=== PATIENT | female | born 1985 | race Caucasian/White ===

== ENCOUNTER → 2017-09-10 | Outpatient (CLI) | payer OTHER ==
[2017-09-10 13:28] LABS: MEAN CORPUSCULAR HEMOGLOBIN 32.3 pg (27.0-33.0); MEAN CORPUSCULAR HGB CONC 32.6 g/dl (32.0-36.5); MEAN CORPUSCULAR VOLUME 99.1 fl (80.0-96.0); PLATELET COUNT, AUTOMATED 298 10^3/uL (150-450); RED CELL DISTRIBUTION WIDTH 13.5 % (11.5-14.5); WHITE BLOOD COUNT 6.7 10^3/uL (4.0-10.0)
[2017-09-10 13:38] LABS: ALBUMIN 3.9 GM/DL (3.2-5.2); ALBUMIN/GLOBULIN RATIO 1.26 (1.00-1.93); ALKALINE PHOSPHATASE 67 U/L (45-117); ALT/SGPT 17 U/L (12-78); ANION GAP 8 MEQ/L (8-16); AST/SGOT 9 U/L (7-37); BILIRUBIN,TOTAL 0.2 MG/DL (0.2-1.0); BLOOD UREA NITROGEN 16 MG/DL (7-18); CALCIUM LEVEL 9.2 MG/DL (8.5-10.1); CARBON DIOXIDE LEVEL 27 MEQ/L (21-32); CHLORIDE LEVEL 108 MEQ/L (98-107); CHOLESTEROL LEVEL 176 MG/DL (<200); CREATININE FOR GFR 0.85 MG/DL (0.55-1.02); GLOMERULAR FILTRATION RATE > 60.0 (>60); GLUCOSE, FASTING 75 MG/DL (70-105); POTASSIUM SERUM 4.3 MEQ/L (3.5-5.1); SODIUM LEVEL 143 MEQ/L (136-145); TRIGLYCERIDES LEVEL 124 MG/DL (<150)
== END ==
LOC: M SMT 09:31
PROVIDERS: ATTEND Physician Assistant Medical
DX: Z13.0 Encounter for screening for diseases of the blood and blood-forming organs and certain disorders involving the immune mechanism (principal); Z13.29 Encounter for screening for other suspected endocrine disorder; E55.9 Vitamin D deficiency, unspecified; Z13.220 Encounter for screening for lipoid disorders

== ENCOUNTER → 2017-11-19 | Outpatient (REF) | payer OTHER | LOC: M LAB REF 13:11 | DX: R30.0 Dysuria (principal) ==

== ENCOUNTER → 2018-01-25 | Outpatient (CLI) | payer OTHER ==
[2018-01-25 13:17] LABS: BASO % 0.3 % (0.0-1.0); EOS # 0.1 10^3/uL (0.0-0.50); EOS % 0.6 % (0.0-3.0); HEMATOCRIT 41.5 % (36.0-47.0); HEMOGLOBIN 13.6 g/dl (12.0-15.5); IMMATURE GRANULOCYTE % 0.3 % (0-3.0); LYMPH % 18.4 % (24.0-44.0); MEAN CORPUSCULAR HEMOGLOBIN 32.3 pg (27.0-33.0); MEAN CORPUSCULAR HGB CONC 32.8 g/dl (32.0-36.5); MEAN CORPUSCULAR VOLUME 98.6 fl (80.0-96.0); MONO # 0.6 10^3/uL (0.0-0.8); MONO % 5.4 % (0.0-5.0); NEUTROPHILS # 8.1 10^3/uL (1.8-7.7); PLATELET COUNT, AUTOMATED 311 10^3/uL (150-450); RED BLOOD COUNT 4.21 10^6/uL (4.00-5.40); RED CELL DISTRIBUTION WIDTH 14.1 % (11.5-14.5); WHITE BLOOD COUNT 10.8 10^3/uL (4.0-10.0)
[2018-01-25 14:08] LABS: RUBELLA IgG QUALITATIVE IMMUNE (IMMUNE)
[2018-01-25 14:10] LABS: HBsAg Prenatal NEGATIVE (NEGATIVE)
[2018-01-25 14:36] LABS: HEPATITIS C VIRUS ABY INDEX < 0.0 INDEX (<0.8)
[2018-01-25 14:37] LABS: HIV 1&2 SCREEN CENTAUR NEGATIVE (NEGATIVE)
[2018-01-25 15:32] LABS: CHLAMYDIA DNA AMPLIFICATION NEGATIVE (NEGATIVE); GC DNA AMPLIFICATION NEGATIVE (NEGATIVE)
== END ==
LOC: M SMT 08:53
DX: Z34.81 Encounter for supervision of other normal pregnancy, first trimester (principal); Z3A.08 8 weeks gestation of pregnancy

== ENCOUNTER → 2018-03-09 | Outpatient (CLI) | payer OTHER | LOC: M RAD 09:48 | DX: Z34.82 Encounter for supervision of other normal pregnancy, second trimester (principal); Z36.89 Encounter for other specified antenatal screening; Z3A.20 20 weeks gestation of pregnancy | CPT/HCPCS: 76811 ==

== ENCOUNTER → 2018-03-19 | Outpatient (REF) | payer OTHER | LOC: M LAB REF 13:59 | DX: Z34.82 Encounter for supervision of other normal pregnancy, second trimester (principal) ==

== ENCOUNTER → 2018-05-07 | Outpatient (CLI) | payer OTHER | LOC: M RAD 08:40 | DX: O32.1XX0 Maternal care for breech presentation, not applicable or unspecified (principal); Z36.89 Encounter for other specified antenatal screening; Z3A.28 28 weeks gestation of pregnancy | CPT/HCPCS: 76816 ==

== ENCOUNTER → 2018-05-13 | Outpatient (CLI) | payer OTHER ==
[2018-05-13 13:44] LABS: HEMATOCRIT 38.7 % (36.0-47.0); HEMOGLOBIN 12.6 g/dl (12.0-15.5); MEAN CORPUSCULAR HEMOGLOBIN 32.8 pg (27.0-33.0); MEAN CORPUSCULAR HGB CONC 32.6 g/dl (32.0-36.5); MEAN CORPUSCULAR VOLUME 100.8 fl (80.0-96.0); PLATELET COUNT, AUTOMATED 301 10^3/uL (150-450); RED BLOOD COUNT 3.84 10^6/uL (4.00-5.40); WHITE BLOOD COUNT 9.9 10^3/uL (4.0-10.0)
[2018-05-13 14:12] LABS: GLUCOSE CHALLENGE TEST 1 HOUR 85 MG/DL (LESS THAN 140)
== END ==
LOC: M SMT 10:30
DX: Z36.89 Encounter for other specified antenatal screening (principal); Z3A.00 Weeks of gestation of pregnancy not specified
CPT/HCPCS: 82950

== ENCOUNTER → 2018-07-08 | Outpatient (REF) | payer OTHER | LOC: M LAB REF 13:47 | DX: Z34.83 Encounter for supervision of other normal pregnancy, third trimester (principal) ==

== ENCOUNTER 2018-07-28 06:08 | Inpatient (IN) | payer OTHER ==
[2018-07-28] MEDS: LACTATED RINGER'S 1000 ML IV ×2 (07:00→07:48)
[2018-07-28 07:07] LABS: HEMATOCRIT 42.4 % (36.0-47.0); HEMOGLOBIN 14.4 g/dl (12.0-15.5); MEAN CORPUSCULAR HEMOGLOBIN 32.9 pg (27.0-33.0); MEAN CORPUSCULAR VOLUME 96.8 fl (80.0-96.0); PLATELET COUNT, AUTOMATED 314 10^3/uL (150-450); RED BLOOD COUNT 4.38 10^6/uL (4.00-5.40); RED CELL DISTRIBUTION WIDTH 14.5 % (11.5-14.5); WHITE BLOOD COUNT 8.8 10^3/uL (4.0-10.0)
[2018-07-28] MEDS: LR 1,000 ML IV (07:51)
[2018-07-28] MEDS: BICITRA 30ML SOLN UDC PO (08:14)
[2018-07-28] MEDS ORDERED: OXYTOCIN INJ 10 UNITS/ML VIAL (J2590) As Ordered (08:52)
[2018-07-28] MEDS ORDERED: MORPHINE PRES-FREE INJ 10 MG/10 ML VIAL (J2274) As Ordered (08:52)
[2018-07-28] MEDS ORDERED: PHENYLephrine HCL 500 MCG/5 ML (100MCG/ML) SYRINGE (J2370) As Ordered (08:54)
[2018-07-28] MEDS: DOCUSATE SODIUM 100 MG CAP PO ×2 (09:00→21:47)
[2018-07-28] MEDS ORDERED: KETOROLAC 60 MG/2 ML VIAL (J1885) As Ordered (09:34)
[2018-07-28] MEDS ORDERED: ONDANSETRON 4MG/2ML VIAL (J2405) As Ordered (09:37)
[2018-07-28] MEDS ORDERED: ONDANSETRON 4MG/2ML VIAL (J2405) IV ×2 (10:15→10:30)
[2018-07-28] MEDS ORDERED: PROMETHAZINE 25 MG TAB PO (10:15)
[2018-07-28] MEDS ORDERED: PERCOCET 5MG/325MG TAB PO ×2 (10:15)
[2018-07-28] MEDS ORDERED: MEASLES,MUMPS,RUBELLA VACCINE INJ (MMR-II) (90707) SC (10:15)
[2018-07-28] MEDS ORDERED: fentaNYL 100 MCG/2 ML INJECTION (J3010) IV (10:30)
[2018-07-28] MEDS ORDERED: NALBUPHINE HCL 10 MG/ML AMP (J2300) IV (10:30)
[2018-07-28] MEDS: OXYTOCIN DRIP 30 UNITS in APPROPRIATE DILUENT 1 EA IV (11:00)
[2018-07-28] MEDS ORDERED: LR 1,000 ML IV (11:00)
[2018-07-28] MEDS ORDERED: RHOGAM 300 MCG (1500 IU) INJ (J2790) IM (11:00)
[2018-07-28] MEDS: KETOROLAC 30 MG/ML VIAL (J1885) IV ×2 (15:59→21:47)
[2018-07-28] MEDS ORDERED: INFLUENZA QUADRIVALENT PF VACCINE 0.5ML SYRINGE (90686) IM (20:45)
[2018-07-29] MEDS: KETOROLAC 30 MG/ML VIAL (J1885) IV (04:06)
[2018-07-29 07:02] LABS: HEMATOCRIT 32.4 % (36.0-47.0); MEAN CORPUSCULAR HEMOGLOBIN 32.4 pg (27.0-33.0); MEAN CORPUSCULAR HGB CONC 32.7 g/dl (32.0-36.5); MEAN CORPUSCULAR VOLUME 99.1 fl (80.0-96.0); PLATELET COUNT, AUTOMATED 309 10^3/uL (150-450); RED BLOOD COUNT 3.27 10^6/uL (4.00-5.40); RED CELL DISTRIBUTION WIDTH 14.6 % (11.5-14.5); WHITE BLOOD COUNT 9.7 10^3/uL (4.0-10.0)
[2018-07-29 07:17] LABS: HEMOGLOBIN 10.6 g/dl (12.0-15.5)
[2018-07-29] MEDS: DOCUSATE SODIUM 100 MG CAP PO ×2 (09:00→20:38)
[2018-07-29] MEDS: PRENATAL VITAMINS CHEWABLE TABLET PO (09:00)
[2018-07-29] MEDS: IBUPROFEN 800 MG TAB PO ×2 (12:00→20:38)
[2018-07-30] MEDS: IBUPROFEN 800 MG TAB PO (04:31)
[2018-07-30] MEDS: PRENATAL VITAMINS CHEWABLE TABLET PO (08:09)
[2018-07-30] MEDS: DOCUSATE SODIUM 100 MG CAP PO (08:09)
== END 2018-07-30 10:35 | disposition home or self-care (01) | DRG 766 ==
LOC: M LDI 06:08 → M OBS 11:37
PROVIDERS: Obstetrics & Gynecology
PROC: 10D00Z1 Extraction of Products of Conception, Low, Open Approach (ICD-10-PCS; principal; 2018-07-28 08:30)
PROC: 0UB70ZZ Excision of Bilateral Fallopian Tubes, Open Approach (ICD-10-PCS; 2018-07-28 08:30)
PROC: 0UB00ZZ Excision of Right Ovary, Open Approach (ICD-10-PCS; 2018-07-28 08:30)
DX: O34.211 Maternal care for low transverse scar from previous cesarean delivery (principal); Z37.0 Single live birth; Z30.2 Encounter for sterilization; Z3A.39 39 weeks gestation of pregnancy; N83.201 Unspecified ovarian cyst, right side; O34.83 Maternal care for other abnormalities of pelvic organs, third trimester

== ENCOUNTER → 2018-10-29 | Outpatient (REF) | payer OTHER ==
[~2018-10-29] MED LIST: COLA100C5 PO; IBUP80TA PO; MAPA500T2 PO; OXYC1TAB23 PO; PERCOCET PO; PRENTAB55 PO; PRENTAB9 PO; TUMS500C PO
[2018-11-04 00:09] LABS: HPV HYBRID CAPTURE II Positive (Negative)
== END ==
LOC: M LAB REF 13:44
PROVIDERS: ATTEND Obstetrics & Gynecology
DX: Z12.4 Encounter for screening for malignant neoplasm of cervix (principal)

== ENCOUNTER → 2018-11-15 | Outpatient (REF) | payer OTHER | LOC: M LAB REF 17:22 | PROVIDERS: ATTEND Obstetrics & Gynecology | DX: R87.810 Cervical high risk human papillomavirus (HPV) DNA test positive (principal) ==

== ENCOUNTER 2019-05-14 09:40 | Emergency (ER) | payer OTHER ==
[~2019-05-14] VITALS: Ht 165.1 cm; Wt 81.8 kg
[2019-05-14 10:27] LABS: BASO % 0.3 % (0.0-1.0); EOS # 0.1 10^3/uL (0.0-0.50); EOS % 1.3 % (0.0-3.0); HEMATOCRIT 38.6 % (36.0-47.0); HEMOGLOBIN 12.7 g/dl (12.0-15.5); LYMPH # 2.5 10^3/uL (1.5-4.5); LYMPH % 27.6 % (24.0-44.0); MEAN CORPUSCULAR HEMOGLOBIN 32.8 pg (27.0-33.0); MEAN CORPUSCULAR HGB CONC 32.9 g/dl (32.0-36.5); MEAN CORPUSCULAR VOLUME 99.7 fl (80.0-96.0); MONO # 0.6 10^3/uL (0.0-0.8); MONO % 6.8 % (0.0-5.0); NEUTROPHILS # 5.8 10^3/uL (1.8-7.7); NEUTROPHILS % 63.7 % (36.0-66.0); PLATELET COUNT, AUTOMATED 267 10^3/uL (150-450); RED BLOOD COUNT 3.87 10^6/uL (4.00-5.40); WHITE BLOOD COUNT 9.1 10^3/uL (4.0-10.0)
[2019-05-14] MEDS ORDERED: ACETAMINOPHEN TAB 650MG DOSE (2X325MG) PO ONE (11:30)
[2019-05-14 11:33] LABS: ALBUMIN 3.4 GM/DL (3.2-5.2); ALT/SGPT 16 U/L (12-78); BILIRUBIN,DIRECT < 0.1 MG/DL (0.0-0.2); BILIRUBIN,TOTAL 0.2 MG/DL (0.2-1.0); BLOOD UREA NITROGEN 13 MG/DL (7-18); CARBON DIOXIDE LEVEL 26 MEQ/L (21-32); CHLORIDE LEVEL 113 MEQ/L (98-107); GLOMERULAR FILTRATION RATE 55.4 (>60); GLUCOSE, FASTING 63 MG/DL (70-100); LIPASE 176 U/L (73-393); POTASSIUM SERUM 4.4 MEQ/L (3.5-5.1); SODIUM LEVEL 144 MEQ/L (136-145); TOTAL PROTEIN 6.5 GM/DL (6.4-8.2)
--- NOTE | 2019-05-14 13:03 | REP ---
REASON: Right flank pain. COMPARISON: None. The lung bases are clear. Limited evaluation of the solid intra-abdominal organs and gallbladder show no gross abnormalities. Limited evaluation of the pancreas and adrenal glands show no gross abnormalities. Patient is status post left nephrectomy. Postoperative changes are seen in the postoperative bed. There is no nephroureterolithiasis on the right. There is no hydronephrosis or hydroureter. There are no urinary bladder calcifications. Limited evaluation of the bowel loops and their mesenteries show no gross abnormalities. There is no free fluid or free in the abdomen. CT PELVIS: In the right hemipelvis there is a 2.7 cm sized low density structure. There is a trace amount of free pelvic fluid. There is no free air. The bowel loops and their mesenteries are within normal limits. Along the inferior anterior abdominal wall abutting the abdominal wall musculature there is a 9.3 x 2.0 x 6.9 cm sized relatively smoothly marginated structure which has slightly higher than water Hounsfield unit readings. There is no abnormal air density within this. Bone window technique throughout the examination shows the osseous structures to be within normal limits. IMPRESSION: 1. There is a low density structure deep in the subcutaneous fat of the lower abdomen/upper pelvis along the abdominopelvic wall as described above. The exact etiology is uncertain. It could represent a postoperative seroma. I have been given no dates on any of the reordered surgeries. This needs to be correlated clinically. There is no evidence of an abscess at this time, however, followup is recommended. 2. Possible right ovarian cyst. 3. Other findings as described above. Electronically Signed by Ahsan Dawson DO 05/14/2019 01:41 P
[2019-05-14 16:35] VITALS: BP 122/74
--- NOTE | 2019-05-14 18:54 | REP ---
REASON: Followup low density lesion suspected in the right hemipelvis on prior CT obtained earlier today. Transvesical and transvaginal imaging was obtained. The uterus measures 9.3 x 4.8 x 5.6 cm. The endometrial echo complex measures 1.3 cm in thickness and is within normal limits. The right ovary measures 4.0 x 2.7 x 2.6 cm. In the right ovary there are two anechoic structures abutting one another one measures 1.5 cm in its greatest dimension and the other measures 1.8 cm in its greatest dimension. The greatest collective dimension is 3.1 cm. This is likely responsible for the CT finding. The right ovarian RI is 0.61. The left ovary measures 2.3 x 3.3 x 2.8 cm and within normal limits. The left ovarian RI is 0.54. There is a small amount of free fluid in the cul-de-sac likely physiologic. The patient's anterior abdominal wall was also imaged due to the CT finding. Images of that region show a hypoechoic area measuring 5.7 x 1.1 x 7.9 cm. This was indicated as being over the patient's recent nephrectomy scar. IMPRESSION: 1. One complex cyst or two cysts abutting one another in the right ovary as described above. Two month followup is recommended to ensure resolution. 2. Anterior abdominal wall fluid collection likely a postoperative seroma. Electronically Signed by Ahsan Dawson DO 05/15/2019 09:59 A
--- NOTE | 2019-05-21 20:39 | ED PDOC ---
Post-Departure Follow-Up dr herberth wilkins faxed formal report of pelvic us for fu alvarezg David Mcleod MD May 21, 2019 20:39
--- NOTE | 2019-05-21 20:44 | ED PDOC ---
Post-Departure Follow-Up dr herberth wilkins is faxed formal report of ct abd/p for fu David Saez MD May 21, 2019 20:44
== END 2019-05-14 16:48 | disposition home or self-care (01) ==
LOC: M ED 09:40
DX: N83.201 Unspecified ovarian cyst, right side (principal); F17.210 Nicotine dependence, cigarettes, uncomplicated